=== PATIENT | female | born 1985 | race Caucasian/White ===

== ENCOUNTER 2021-06-20 23:17 | Emergency (ER) | payer MEDICAID ==
[2021-06-21 00:24] VITALS: BP 115/75; PULSE 90
[2021-06-21] MEDS ORDERED: Clindamycin HCl 150 MG Cap PO ONE (01:21)
--- NOTE | 2021-06-21 01:27 | EDM.PDOC ---
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 multiple superficial skin infections including MRSA Endorses presence of multiple scars to the chest, neck, and face due to this Denies fever Endorses nausea which she attributes to current Estimates 7-8 weeks gestation, LMP 04/30/2020 - Related Data Allergies Allergy/AdvReac Type Severity Reaction Status Date / Time Latex, Natural Rubber Allergy Swelling Verified 06/21/21 00:23 soap Allergy Rash Uncoded 06/21/21 00:23 Home Meds: Home Meds Pediatric Multivitamin No.17 [Children's Chew Multivitamin] 1 tab.chew CHEW DAILY 11/17/18 [History] Clindamycin HCl 300 mg PO Q8H 10 Days capsule 06/21/21 [Rx] Past Medical History - Past Health History Medical/Surgical History: Denies Medical/Surgical History HEENT History: Reports: Other (See Below) Other HEENT History: wears glasses, hx fx nose Genitourinary History: Reports: None PROFESSIONAL CASTER History: Reports: , Other (See Below) Other PROFESSIONAL CASTER History: genital herpes Musculoskeletal History: Reports: Fracture Other Musculoskeletal History: fx toes, nose grayson bone-rt leg Neurological History: Reports: Concussion, Migraines, Other (See Below) Other Neuro History: bulging disc in neck Psychiatric History: Reports: Anxiety, Depression, PTSD Hematologic History: Reports: Anemia Dermatologic History: Reports: Other (See Below) Other Dermatologic History: noted small lesion all over her face and extremities according to pt she is + MRSA - Infectious Disease History Infectious Disease History: Reports: MRSA - Past Surgical History Head Surgeries/Procedures: Reports: None Female Surgical History: Reports: Section Neurological Surgical History: Reports: None Dermatological Surgical History: Reports: None Social & Family History - Family History Cardiac: Reports: High Cholesterol, Hypertension OBGYN: Reports: Psychiatric: Reports: Other (See Below) Other Psychiatric Family History: patient states everyone in her family has pychiatric problems Endocrine/Metabolic: Reports: Diabetes, type II - Tobacco Use Tobacco Use Status *Q: Current Every Day Tobacco User Years of Tobacco use: 15 Packs/Tins Daily: 0.5 - Caffeine Use Caffeine Use: Reports: None - Recreational Drug Use Recreational Drug Use: No ED ROS GENERAL - Review of Systems Review Of Systems: See Below Free Text/Narrative/Comment: Constitutional - no fever Gastrointestinal - no abdominal pain; nausea; no vomiting; no diarrhea Genitourinary - no dysuria Musculoskeletal - no neck pain; no back pain; no extremity injury; diminished range of motion right shoulder Neurological - no headache; no speech disturbance; no weakness Integumentary - skin lesion ED EXAM, SKIN/RASH Exam: See Below Text/Narrative:: Constitutional - awake; alert; no acute distress Head - no facial swelling or weakness Eyes - extra ocular motion intact; conjunctiva normal ENT - no nasal deformity; no epistaxis; normal phonation Neck - no swelling Respiratory - normal respiratory effort Musculoskeletal - grossly normal strength and motion; no swelling or deformity Skin - warm; dry - anterior right deltoid area: 5 cm x 7 cm ovoid region of induration and tenderness with mild, poorly demarcated erythema Neurologic - normal speech; no weakness; gait intact Psychiatric - normal mood and affect; memory and attention normal Course - Vital Signs Text/Narrative:: . Considered etiologies included: Erythema, induration, abscess, cellulitis, hidradenitis, MRSA Symptoms and examination were discussed There is no indication for ED investigation There was no palpable, localized fluctuance suggestive for abscess Empiric treatment for cellulitis was initiated with clindamycin Prescription was provided for continuation of therapy Primary care follow-up was advised Patient was felt to be stable for outpatient follow-up Return precautions were provided Last Recorded V/S: Last Vital Signs Temp 36.2 C 06/21/21 00:21 Pulse 90 06/21/21 00:21 Resp 16 06/21/21 00:21 BP 115/75 06/21/21 00:21 Pulse Ox 97 06/21/21 00:21 - Orders/Labs/Meds Meds: Medications Discontinued Medications Generic Name Dose Route Start Last Admin Trade Name Freq PRN Reason Stop Dose Admin Clindamycin HCl 300 mg 06/21/21 01:21 06/21/21 01:50 Clindamycin Hcl 150 Mg Cap PO 06/21/21 01:22 300 mg ONETIME ONE Administration Departure - Departure Time of Disposition: 01:35 Disposition: Home, Self-Care 01 Clinical Impression: Cellulitis of right arm - Discharge Information *PRESCRIPTION DRUG MONITORING PROGRAM REVIEWED*: Not Applicable *COPY OF PRESCRIPTION DRUG MONITORING REPORT IN PATIENT CHASTITY: Not Applicable Prescriptions: Clindamycin HCl 300 mg PO Q8H 10 Days capsule Instructions: Cellulitis, Adult Referrals: PCP,Not In Area [Primary Care Provider] - Forms: ED Department Discharge Additional Instructions: Return if condition worsens May resume general activity and regular diet as tolerated Continue usual medications Take CLINDAMYCIN antibiotic as prescribed, until completed Follow-up with primary care provider is recommended within 2-3 days Sepsis Event Note (ED) - Evaluation Sepsis Screening Result: No Definite Risk
== END 2021-06-21 01:50 | disposition home or self-care (01) ==
LOC: JD.ED 23:17
DX: L03.113 Cellulitis of right upper limb (principal); Z72.0 Tobacco use; Z91.040 Latex allergy status; Z91.048 Other nonmedicinal substance allergy status; Z3A.01 Less than 8 weeks gestation of pregnancy
CPT/HCPCS: 99283; A9270

== ENCOUNTER 2025-04-06 16:42 | Emergency (ER) | payer BC ==
[2025-04-06 17:23] VITALS: BP 110/64; PULSE 4
[2025-04-06 17:41] LABS: APPEARANCE,URINE TURBID (Clear); BILIRUBIN,URINE NEGATIVE (Negative); COLOR,URINE YELLOW (Yellow); GLUCOSE,URINE NEGATIVE (Negative); KETONES,URINE NEGATIVE (Negative); LEUKOCYTE ESTERASE,URINE 1+ (Negative); NITRITE,URINE POSITIVE (Negative); OCCULT BLOOD,URINE 2+ (Negative); PROTEIN,URINE 1+ (Negative); UROBILINOGEN,URINE 0.2 (0.2-1.0)
[2025-04-06] MEDS: Iopamidol 612 MG/ML 100 ML Bottle IVPUSH ONE (17:41)
[2025-04-06] MEDS: Sodium Chloride 0.9% 10 ML Syringe FLUSH ONE (17:41)
[2025-04-06 17:43] LABS: BASOPHILS ABSOLUTE AUTO 0.1 K/mm3 (0.0-0.2); BASOPHILS PERCENT AUTO 0.3 % (0.0-1.0); EOSINOPHILS PERCENT AUTO 0.1 % (0.0-6.0); HEMATOCRIT 43.1 % (37.0-47.0); HEMOGLOBIN 14.2 gm/dl (12.0-16.0); IMMATURE GRAN ABSOLUTE AUTO 0.09 K/mm3 (0.00-0.05); IMMATURE GRAN PERCENT AUTO 0.5 % (0.0-0.4); LYMPHOCYTES PERCENT AUTO 5.7 % (24.0-44.0); MEAN CORPUSCULAR HEMOGLOBIN 30.5 pg (28.0-32.0); MEAN CORPUSCULAR HGB CONC 32.9 g/dl (32.0-36.0); MEAN CORPUSCULAR VOLUME 92.7 fl (83.0-99.0); MONOCYTES ABSOLUTE AUTO 0.5 K/mm3 (0.0-0.8); MONOCYTES PERCENT AUTO 2.5 % (0.0-8.0); NEUTROPHILS ABSOLUTE AUTO 16.6 K/mm3 (1.8-7.7); NEUTROPHILS PERCENT AUTO 90.9 % (41.0-71.0); PLATELET COUNT,PLT 343 K/mm3 (150-400); RED BLOOD CELL COUNT 4.65 M/mm3 (4.10-5.30); WHITE BLOOD CELL COUNT,WBC 18.29 K/mm3 (3.9-11.3)
[2025-04-06] MEDS: Sodium Chloride 0.9% 1,000 ML IV SCH (17:54)
[2025-04-06 17:55] LABS: A/G RATIO 1.3 (1-2); ALANINE AMINOTRANSFERASE,ALT 31 U/L (14-59); ALBUMIN 4.7 g/dl (3.4-5.0); ALKALINE PHOSPHATASE 63 U/L (46-116); ASPARTATE AMNIOTRANSFERASE,AST 21 U/L (15-37); BILIRUBIN TOTAL 0.4 mg/dL (0.2-1.0); BLOOD UREA NITROGEN,BUN 17 mg/dL (7-18); BUN/CREATININE RATIO 18.9 (14-18); CALCIUM 10.2 mg/dL (8.5-10.1); CARBON DIOXIDE,CO2 29 mEq/L (21-32); CHLORIDE,CL 105 mEq/L (98-107); CREATININE 0.9 mg/dL (0.55-1.02); EST CRCL DRUG DOSING (CG) 83.82 mL/min; ESTIMATED GFR 83 mL/min (>60); GLUCOSE RANDOM 113 mg/dL (70-99); LIPASE 27 U/L (16-77); PROTEIN TOTAL,TP 8.4 g/dl (6.4-8.2); SODIUM,NA 142 mEq/L (136-145)
[2025-04-06] MEDS: Sodium Chloride 0.9% 10 ML Syringe FLUSH PRN (17:55)
[2025-04-06 18:06] LABS: BACTERIA,URINE MANY /hpf (FEW); RBC,URINE 40-50 /hpf (0-5); WBC,URINE >100 /hpf (0-5)
[2025-04-06 18:07] LABS: MUCUS,URINE MANY /hpf (FEW)
[2025-04-06 18:09] LABS: C-REACTIVE PROTEIN < 0.05 mg/dL (<0.30)
[2025-04-06] MEDS ORDERED: cefTRIAXone 2 GM in Sodium Chloride 0.9% 100 ML IV ONE (19:13)
[2025-04-06] MEDS ORDERED: Ketorolac 30 MG/ML SDV IVPUSH ONE (19:13)
[2025-04-06] MEDS ORDERED: Ondansetron 4 MG/2 ML SDV IVPUSH ONE (19:46)
[2025-04-06 19:51] LABS: LACTIC ACID 0.7 mmol/L (0.4-2.0)
[2025-04-06] MEDS ORDERED: Sodium Chloride 0.9% 1,000 ML IV SCH (20:00)
[2025-04-06] MEDS ORDERED: Naloxone 0.4 MG/ML SDV IVPUSH PRN (20:19)
[2025-04-06] MEDS ORDERED: fentaNYL 100 MCG/2 ML SDV IVPUSH ONE (20:19)
== END 2025-04-06 21:08 | disposition left against medical advice (07) ==
LOC: JD.ED 16:42
DX: N13.2 Hydronephrosis with renal and ureteral calculous obstruction (principal); N39.0 Urinary tract infection, site not specified; K42.9 Umbilical hernia without obstruction or gangrene; Z91.040 Latex allergy status; Z91.048 Other nonmedicinal substance allergy status
CPT/HCPCS: 36415; 74177; 80053; 81001; 83605; 83690; 85025; 86140; 87086; 87088; 87186; 96360; 99284; J7030; Q9967